=== PATIENT | female | born 1960 | race Caucasian/White ===

== ENCOUNTER → 2019-01-04 | Outpatient (CLI) | payer OTHER ==
[~2019-01-04] MED LIST: ALPR1; BUSP15; ESCI20; ESTMED1.5T; TRAZ100
[2019-01-06 15:07] LABS: HPV 16 Negative (Negative); HPV 18 Negative (Negative); HPV OTHER HR TYPES Negative (Negative)
== END | disposition home or self-care (01) ==
LOC: LAB 16:31 → LAB SHORT 16:31
PROVIDERS: Obstetrics & Gynecology Gynecology
DX: Z12.72 Encounter for screening for malignant neoplasm of vagina (principal)
CPT/HCPCS: 87624; G0123

== ENCOUNTER 2019-04-03 07:51 | Day surgery (SDC) | payer OTHER | END 2019-04-03 22:42 | disposition home or self-care (01) | LOC: MOI US 07:51 → MOI MAM 08:15 → MOI US 08:15 | DX: C50.911 Malignant neoplasm of unspecified site of right female breast (principal); Z17.0 Estrogen receptor positive status [ER+] | CPT/HCPCS: 19083; 77065; A4648 ==

== ENCOUNTER 2019-06-19 15:52 | Day surgery (SDC) | payer OTHER ==
[2019-06-21] MEDS ORDERED: EUTHYROX100 MCG PO (09:58)
== END 2019-06-19 22:38 | disposition home or self-care (01) ==
LOC: MOI US 15:52
DX: C50.811 Malignant neoplasm of overlapping sites of right female breast (principal); Z79.899 Other long term (current) drug therapy
CPT/HCPCS: 19285; 77065; G0279

== ENCOUNTER 2021-10-01 08:34 | Day surgery (SDC) | payer OTHER ==
[~2021-10-01 08:34] MED LIST changes: +EUTHYROX100 MCG PO
== END 2021-10-07 23:52 | disposition home or self-care (01) ==
LOC: MOI MAM 08:34
DX: D05.12 Intraductal carcinoma in situ of left breast (principal); C50.211 Malignant neoplasm of upper-inner quadrant of right female breast; Z17.0 Estrogen receptor positive status [ER+]
CPT/HCPCS: 19081; 88305; 88341; 88342; 88360; A4648

== ENCOUNTER 2021-11-13 08:19 | Day surgery (SDC) | payer OTHER ==
[~2021-11-13] VITALS: Ht 162.6 cm; Wt 86.1 kg
[~2021-11-13 08:19] MED LIST changes: +ATOR20 PO; +HYDCHL25 PO; +LETR2.5 PO; +MULVITA PO; +TRAZ100 PO; +VITAMIN D310 MC4 PO; +Vitamin B Comple1 EA PO
--- NOTE | 2021-11-13 13:15 | NUR ---
Patient up to Ambulate independently. Gait steady. Discharge instructions reviewed with patient. Patient verbalizes understanding. Copy given to patient to take home. Dressing to procedure site clean, dry, intact with no visible drainage, swelling, erythema or bruising noted. Discharged via wheelchair to private car for ride home.
== END 2021-11-13 23:27 | disposition home or self-care (01) ==
LOC: NM 08:19
PROVIDERS: Surgery
PROC: 07B60ZX Excision of Left Axillary Lymphatic, Open Approach, Diagnostic (ICD-10-PCS; principal; 2021-11-13 10:30)
PROC: 0HBU0ZZ Excision of Left Breast, Open Approach (ICD-10-PCS; principal; 2021-11-13 10:30)
DX: D05.12 Intraductal carcinoma in situ of left breast (principal); F41.9 Anxiety disorder, unspecified; F32.A Depression, unspecified; I10 Essential (primary) hypertension; K21.9 Gastro-esophageal reflux disease without esophagitis; E78.5 Hyperlipidemia, unspecified; E03.9 Hypothyroidism, unspecified
CPT/HCPCS: 38792; A9270; A9520; J0690; J1100; J1885; J2250; J2405; J2704; J2795; J3010; J7120; Q9968

== ENCOUNTER 2021-12-05 07:30 | Day surgery (SDC) | payer OTHER ==
[~2021-12-05] VITALS: Ht 162.6 cm; Wt 86.4 kg
[~2021-12-05 07:30] MED LIST changes: -BUSP15; +Buspirone HCl15 MG PO
--- NOTE | 2021-12-05 08:32 | NUR ---
Ambulatory in Day Surgery. History, Chart, Medications and Allergies reviewed before start of procedure.Lungs clear T/O to Auscultation. Patient confirms NPO status and agrees with scheduled surgery. Pre-Op teaching done. Pt verbalizes understanding. Patient States Post-Procedure ride home has been arranged.
--- NOTE | 2021-12-05 11:05 | NUR ---
Discharge instructions reviewed with patient. Patient verbalizes understanding. Copy given to patient to take home. PT TOLERATED PUDDING AND JUICE WELL AND TOOK NORCO PER ORDER, PT STATES FOR LAST SURGERY SHE WAS GIVEN OXYCODONE RX AND IT DIDN'T WORK FOR PAIN AND WOULD LIKE TO TRY NORCO THIS TIME. DR BECKMAN IN SURGERY RIGHT NOW BUT THIS RN WILL ASK DR BECKMAN FOR NEW RX. PT DRESSED AND AMBULATED TO BATHROOM PRIOR TO DC HOME. DRG TO LEFT BREAST REEXCISION IS C/D/I. PT IV SITE INFILTRATED, REMOVED, PT DENIES PAIN, ABLE TO MORE ARM AND FINGERS. ENCOURAGED PT TO ELEVATE ARM TO HELP WITH SWELLING. Discharged via wheelchair to private car for ride home.
== END 2021-12-05 11:10 | disposition home or self-care (01) ==
LOC: ORSCMMR 07:30 → ORD 09:00 → ORSCMMR 11:10
PROVIDERS: Surgery
PROC: 0HBU0ZX Excision of Left Breast, Open Approach, Diagnostic (ICD-10-PCS; principal; 2021-12-05 09:00)
DX: D05.92 Unspecified type of carcinoma in situ of left breast (principal); E03.9 Hypothyroidism, unspecified; E66.9 Obesity, unspecified; Z68.32 Body mass index [BMI] 32.0-32.9, adult; Z79.899 Other long term (current) drug therapy
CPT/HCPCS: 88307; A9270; J0690; J1100; J1885; J2250; J2405; J2704; J2795; J3010; J7120